=== PATIENT | male | born 2005 | race African-American/Black ===

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

== ENCOUNTER 2024-06-16 19:05 | Emergency (ER) | payer OTHER, SELFPAY ==
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
[2024-06-16 19:43] VITALS: BP 140/90; PULSE 88; RESP 18; TEMP 36.3; O2SAT 97; BMI 24.8
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
--- NOTE | 2024-06-17 02:23 | PC.NURSE ---
Pt brought to [facility] for treatment, assumed care of pt at this time. A&Ox3 skin color wnl for ethnicity, respirations even unlabored. Endorsing continued left jaw pain 12/18. No obvious deformity noted, negative imaging. VSS. Awaiting primary provider eval, aware of plan of care.
[2024-06-17 02:27] VITALS: BP 150/82; PULSE 65; RESP 18; TEMP 36.1; O2SAT 98
[2024-06-17] MEDS: Ibuprofen 600 MG TABLET PO (03:10)
[2024-06-17 03:11] VITALS: BP 150/82; PULSE 65; RESP 18; TEMP 36.1; O2SAT 98
== END 2024-06-17 03:12 | disposition home or self-care (01) ==
PROVIDERS: Emergency Provider Emergency Medicine
DX: S00.83XA Contusion of other part of head, initial encounter (principal); X58.XXXA Exposure to other specified factors, initial encounter; Y04.8XXA Assault by other bodily force, initial encounter; Y93.89 Activity, other specified; Y92.89 Other specified places as the place of occurrence of the external cause
CPT/HCPCS: 70110; 99283; 99284

== ENCOUNTER 2025-07-18 17:38 | Emergency (ER) | payer OTHER, SELFPAY ==
--- NOTE | ~2025-07-18 | US_ITS ---
CLINICAL HISTORY: Right calf pain. DVT Venous duplex ultrasound right lower extremity Comparison: None provided Findings: The visualized deep veins are fully compressible with normal Doppler color flow and spectral tracings. Intraluminal echoes and noncompressibility and no flow in the greater saphenous vein from level of distal calf up to mid thigh, consistent with superficial thrombophlebitis. No popliteal cyst. IMPRESSION: 1. Negative for right lower extremity deep vein thrombosis. 2. Greater saphenous vein superficial thrombophlebitis. This document has been electronically signed by: Ericka Banegas MD on 07/18/2025 21:34:35
[2025-07-18 17:49] VITALS: BP 172/82; PULSE 82; RESP 16; TEMP 36.2; O2SAT 98; BMI 45.3
--- NOTE | 2025-07-18 18:00 | ED_ITS ---
HPI - General Adult General Chief complaint: General Medical Stated complaint: Blood Clot Time Seen by Provider: 07/18/25 20:43 History of Present Illness ED Provider: Maryann Bae NP [facility] narrative: 20-year-old male otherwise healthy presents to the ED with chief complaint of right calf pain. Patient reports that he went to see his primary care provider complaining of this pain but was sent to the ED for an ultrasound. He has no history of DVT, but has a family history of blood clots. He denies any anticoagulant use. No recent injury, trauma to the leg. No recent travel. Reports the back of the calf feels very tight. He denies any fever, chills. No chest pain or pressure, shortness of breath, abdominal pain. Related Data Previous Rx's ?Medication ?Instructions ?Recorded ibuprofen 600 mg tablet 600 mg PO Q8H PRN fever or p ain 06/17/24 #20 tabs acetaminophen 500 mg tablet 1,000 mg (2 x 500 mg) PO Q 8H PRN 07/18/25 fever or pain 7 days #30 tabs Allergies Allergy/AdvReac Type Severity Reaction Status Date / Time No Known Allergies Allergy Verified 07/18/25 17:53 Review of Systems 2 Review of Systems: ROS is otherwise negative unless mentioned in HPI. [facility] Past Medical History Medical History Psychosis No known health problems Depression Social History Social History Household Members: Family Household Members Other:: sister Housing: House Do you presently have visiting nurse or other home services: No Alcohol intake: never Comment: M3 Patient Tobacco Use Status: Tobacco use Unknown Substance Use Type: Marijuana service: No Sexual orientation: Decline to Answer Physical Exam ED Exam Exam: Nursing notes and vital signs reviewed. Constitutional: Well-appearing, NAD. Alert. Oriented X3. Eyes: EOMI. ENT: Pharynx normal. Neck: Normal inspection. Neck supple. CVS: Normal heart rate and rhythm. Pulses normal. Respiratory: No respiratory distress. Abdomen: Nondistended. Skin: Skin warm and dry. Normal skin color. Extremities: No lower extremity edema. Pain with dorsiflexion of the right foot. Neuro: Oriented X 3. No motor deficit. Vital Signs: Vital Signs - 24 hr 07/18/25 17:49 07/18/25 22:00 Temperature 97.2 F 97.2 F Pulse Rate 82 82 Respiratory Rate 16 16 Blood Pressure 172/82 H 172/82 H Pulse Oximetry 98 98 Oxygen Delivery Method Room Air Room Air BMI result Body Mass Index 45.3 Course Course Course Narrative: RME: 20-year-old male presents to ED for right calf pain. Patient was sent by primary care to rule out DVT. Patient states right calf pain not relieved with any stretching. Patient has strong family history of DVT. Ultrasound labs ordered. Medications Administered Discontinued Medications Generic Name Dose Route Start Last Admin Trade Name Michael PRN Reason Stop Dose Admin Acetaminophen 975 mg 07/18/25 22:07 07/18/25 22:35 Acetaminophen 325 Mg Tablet PO 07/18/25 22:08 975 mg ONCE ONE Administration Ibuprofen 600 mg 07/18/25 22:07 07/18/25 22:35 Ibuprofen 600 Mg Tablet PO 07/18/25 22:08 600 mg ONCE ONE Administration Medical Decision Making Medical Decision Making [facility] Narrative: Upon my initial assessment, he is reporting right-sided calf pain. There is pain with dorsiflexion of the foot, concerning for underlying DVT or thrombophlebitis. Pending venous duplex, that was ordered by the triage provider and reassessment. His lab work was overall reassuring however. 2200-- He has ultrasound shows no right lower extremity DVT but there is evidence of a greater saphenous vein superficial thrombophlebitis. I spoke with vascular surgery on-call Dr. Yap given the anatomical location of the greater saphenous vein superficial thrombophlebitis. He does not recommend at this time anticoagulation based on the anatomic location. I do recommend the patient follows up with vascular surgery outpatient, and if pain persists or worsens he returns to the ED promptly for reassessment. I provided him a dose of Tylenol, ibuprofen while in the ED. He and his family member at bedside are agreeable to plan of care. Provided return precautions to the ED. Differential Diagnosis Differential Diagnoses: The differential diagnosis associated with the presentation includes DVT, cellulitis, thrombophlebitis Admission/Observation Consideration of admission/observation: Escalation of care including admission/observation considered ( not indicated) Consult Healthcare Provider Management of the patient was discussed with: Director Drug Safety (vascular surgery, Dr. Yap) Lab Data [facility] Lab Attestation statement: I reviewed the patient's lab results. (Overall reassuring) 07/18/25 18:10 07/18/25 18:10 Labs: Lab Results 07/18/25 Range/Units 18:10 WBC 7.6 (4.8-10.8) X10*3/uL RBC 5.04 (4.60-5.80) X10*6/uL Hgb 13.6 L (14.0-18.0) g/dl Hct 41.5 L (42.0-52.0) % MCV 82.3 (80.0-98.0) fL MCH 27.0 (27.0-33.0) pg MCHC 32.8 (31.0-36.0) g/dl RDW 12.0 (11.0-16.0) % Plt Count 208 (160-400) X10*3/uL MPV 9.8 (9.4-12.4) fL Immature Gran % (Auto) 0.3 (0.0-0.4) % Neut % (Auto) 52.5 (45-73) % Lymph % (Auto) 34.2 (20-40) % Floyd % (Auto) 9.1 (2-11) % Eos % (Auto) 3.2 (0-4) % Baso % (Auto) 0.7 (0-2) % Lymph # (Auto) 2.6 (1.2-4.9) X10*3/uL Floyd # (Auto) 0.7 (0.1-1.2) X10*3/uL Eos # (Auto) 0.2 (0.0-0.4) X10*3/uL Baso # (Auto) 0.1 (0.0-0.2) X10*3/uL Abs Immat Gran (auto) 0.02 (0.00-0.03) X10*3/uL Absolute Neuts (auto) 4.0 (2.0-8.3) x10*3/uL Absolute Nucleated RBC 0.000 (0.0-0.012) X10*3/uL Nucleated RBC % (auto) 0.0 (0.0-0.2) /100WBC PT 12.6 (11.2-13.5) SEC INR 1.0 (0.9-1.1) APTT 29.3 (26.7-34.1) SEC Sodium 141 (135-145) mmol/L Potassium 4.3 (3.3-5.1) mmol/L Chloride 107 (96-108) mmol/L Carbon Dioxide 24 (22-29) mmol/L Anion Gap 14 (12-20) BUN 16 (9-16) mg/dL Creatinine 1.09 (0.5-1.4) mg/dL Estim Creat Clear Calc 195.8 Estimated GFR > 60 Random Glucose 93 (60-115) mg/dL Calcium 9.2 (8.4-10.2) mg/dL Total Bilirubin 0.3 (0.0-1.0) mg/dL AST 39 H (5-37) U/L ALT 40 (0-40) U/L Alkaline Phosphatase 80 (39-117) U/L Total Protein 7.2 (6.5-8.0) g/dL Albumin 4.4 (3.5-5.0) g/dL Radiology Impression Discussion of test interpretation with radiology: I have reviewed the radiologist's reading. Radiologist Impression: IMPRESSION: 1. Negative for right lower extremity deep vein thrombosis. 2. Greater saphenous vein superficial thrombophlebitis. Independent Historian Clinical information obtained from an independent historian. History obtained from or confirmed by: Other (Family at bedside) External Record Review External record reviewed: Other (prior ED visits) Chronic Conditions Patient?s care impacted by: Hypertension Social Determinants Patient?s care significantly limited by Social Determinants of Health including: Inadequate housing, Low income and Problems related to primary support group Discharge Plan Discharge Clinical Impression: Superficial thrombophlebitis Patient Disposition: Home, Self-Care Additional Instructions: As we discussed, your ultrasound report shows that you have a greater saphenous vein superficial thrombophlebitis. This means that the clot is not in the deeper veins, and therefore is not a DVT. Based on its location and the fact that it is superficial, at this time we have discussed with vascular surgery, who does not recommend anticoagulation. please follow up with vascular surgery within the next 1-2 weeks regarding close follow up, and if you develop any worsening pain at any time, seek re-evaluation in the ED. Additionally, please follow up with your PCP regarding this finding. You may use [id number] Tylenol, ibuprofen. With any worsening complaints, return back to the ED for reassessment. Prescriptions: New acetaminophen 500 mg tablet 1,000 mg PO Q8H PRN (Reason: fever or pain) 7 Days Qty: 30 0RF No Action ibuprofen 600 mg tablet 600 mg PO Q8H PRN (Reason: fever or pain) Qty: 20 0RF Referrals: Lisa Estrada NP [Primary Care Provider, Pediatrics] Stuart Yap MD [Physician, Vascular Surgery] Interventions: ED Discharge Assessment Last Done: 07/18/25 22:46 Discharge Date/Time: 07/18/25 22:43 Print Language: Ghanaian
[2025-07-18 18:22] LABS: Hematocrit 41.5 % (42.0-52.0); Hemoglobin 13.6 g/dl (14.0-18.0); Imm Gran Abs Auto 0.02 X10*3/uL (0.00-0.03); Imm Gran Pct Auto 0.3 % (0.0-0.4); Lymphocytes Absolute Auto 2.6 X10*3/uL (1.2-4.9); MANUAL DIFF FLAG NO; Mean Corpuscular HGB Conc 32.8 g/dl (31.0-36.0); Mean Corpuscular Hemoglobin 27.0 pg (27.0-33.0); Mean Corpuscular Volume 82.3 fL (80.0-98.0); NRBC Abs Auto 0.000 X10*3/uL (0.0-0.012); NRBC Pct Auto 0.0 /100WBC (0.0-0.2); Platelet Count 208 X10*3/uL (160-400); Red Blood Count 5.04 X10*6/uL (4.60-5.80); White Blood Count 7.6 X10*3/uL (4.8-10.8)
[2025-07-18 18:27] LABS: INTERNATIONAL NORM RATIO 1.0 (0.9-1.1); Prothrombin Time 12.6 SEC (11.2-13.5)
[2025-07-18 18:30] LABS: Partial Thromboplastin Time 29.3 SEC (26.7-34.1)
[2025-07-18 18:35] LABS: Alanine Aminotransferase 40 U/L (0-40); Albumin Level 4.4 g/dL (3.5-5.0); Alkaline Phosphatase 80 U/L (39-117); Anion Gap 14 (12-20); Aspartate Amino Transferase 39 U/L (5-37); Blood Urea Nitrogen 16 mg/dL (9-16); Calcium 9.2 mg/dL (8.4-10.2); Carbon Dioxide 24 mmol/L (22-29); Chloride 107 mmol/L (96-108); Creatinine Clr Calc Pharmacy 195.8; Estimated Glomerular Filt Rate > 60; Potassium 4.3 mmol/L (3.3-5.1); Sodium 141 mmol/L (135-145); Total Protein 7.2 g/dL (6.5-8.0)
[2025-07-18 22:00] VITALS: BP 172/82; PULSE 82; RESP 16; TEMP 36.2; O2SAT 98
[2025-07-18 22:46] VITALS: BP 172/82; PULSE 82; RESP 16; TEMP 36.2; O2SAT 98
--- OUTSIDE RECORDS SUMMARY | 2025-07-19 02:30 | XMS_ITS ---
[facility] Organization Unknown Care Team Organization Name Specialty Phone Email Start Date End Da te [facility] LEO MARRERO Primary Care 06/18/2022 4
== END 2025-07-18 22:43 | disposition home or self-care (01) ==
PROVIDERS: Physician Assistant; Emergency Provider Emergency Medicine; PCP Nurse Practitioner Family
DX: I80.01 Phlebitis and thrombophlebitis of superficial vessels of right lower extremity (principal); M79.604 Pain in right leg
CPT/HCPCS: 36415; 80053; 85025; 85610; 85730; 93971; 99284

== ENCOUNTER → 2025-07-18 17:53 | Outpatient (BNV) | payer OTHER, SELFPAY | PROVIDERS: PCP Nurse Practitioner Family; Visit Provider Specialist | DX: I80.11 Phlebitis and thrombophlebitis of right femoral vein (principal) | CPT/HCPCS: 93971 ==

== ENCOUNTER 2025-07-30 13:56 | Emergency (ER) | payer OTHER, SELFPAY ==
--- OUTSIDE RECORDS SUMMARY | 2025-07-27 23:59 | XMS_ITS | Continuity of Care Document ---
Author Organization [facility] Address [address] [place] [address]- Care Team Providers Care Patient Care Director Name Role Phone Sean KNOX, Lisa Moody Primary Care Physician [phone] [id number] Date(s): 06/27/25 - 07/27/[address] [address]- Encounter Type: Triage Allergies, Adverse Reactions, Alerts Substance Criticality Severity Reaction Reaction Severity Status codeine Active Immunizations Given and Recorded Vaccine Date Status Refusal Reason influenza virus vaccine, inactivated 07/02/23 Give n Medications benztropine 0.5 mg oral tablet 0.5 mg, 1, tablet, By Mouth, Daily at bedtime, # 90 tablet, Refills 0, Maintenance, 07/18/25 11:37:00 AM EST, Partial fill upon patient request if the prescription is for a schedule II opioid drug. Start Date: 07/18/25 Status: Ordered Medication Dispense Status: Completed Quantity: 90.0 Unit: tablet Total Allowed Fills: 1 Fills Dispensed: 0 hydrOXYzine pamoate 50 mg oral capsule 1 capsule = 50 mg, By Mouth, 2 times a day, 0 Refills, Maintenance, 07/18/25 11:37:00 AM EST, Capsule, Partial fill upon patient request if the prescription is for a schedule II opioid drug. 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 Sexual Orientation Self described orien tation: ; Straight or heterosexual Sex Sex Representation Male (finding) Patient Care team information Care Team Personnel Name: Lisa Estrada NP Position: [facility] PCO Associate Professional Member Role: PCP Address: [address] [place] [address] Telecom: Name: Zahida Jean Position: [facility] Outreach Member Role: Lifetime Consulting Physician Care Team Related Persons Name: ACOSTA MICHEL Name: ARIANE MICHEL Name: KIESHA BRISCOE Insurance Providers Guarantor name: [employer] Health Plan Information #: 1 Payer: [employer] Payer Identifier: [employer] Member Number: [id number] Group Number: [id number] Subscriber Identifier: [id number] Relationship to Subscriber: self Coverage Type: Medicaid (Managed Care) Coverage Verification Date: [employer]AL Telecom: [employer] Address:
--- NOTE | ~2025-07-30 | US_ITS ---
CLINICAL HISTORY: increasing swelling pain, recent dx of superficial --- Additional Notes or Special Instructions: thrombophlebitis, eval for dvt Venous duplex ultrasound right lower extremity Comparison: US - US VENOUS DUPLEX LE RT - 07/18/25 20:19 EST Findings: Occlusive thrombus within the popliteal vein and within the distal aspect of the femoral vein. More proximal portions of the femoral vein are patent. The right common femoral vein is patent. The right peroneal vein was not visualized. The right posterior tibial vein is patent. There is chronic nonocclusive thrombus within the right greater saphenous vein. IMPRESSION: 1. There is acute deep venous thrombosis of the right lower extremity with involvement of the femoral and popliteal veins. 2. 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 This document has been electronically signed by: Alanna Trevino MD on 07/30/2025 16:49:20
[2025-07-30 14:30] VITALS: BP 176/92; PULSE 90; RESP 22; TEMP 36.3; O2SAT 97; BMI 46.0
--- NOTE | 2025-07-30 14:34 | ED.GENADULT ---
HPI - General Adult General Chief complaint: General Medical Stated complaint: returning, worsening pain ? bloodclot rt leg Time Seen by Provider: 07/30/25 16:20 Source: patient and family Mode of arrival: ambulatory Limitations: no limitations History of Present Illness ED Provider: Katy Georges APRN HPI narrative: 20-year-old male otherwise healthy presents to the ED with chief complaint of right calf pain. Patient reports that he went to see his primary care provider prior to 07/18 complaining of this pain but was sent to the ED for an ultrasound. he was seen in our emergency room on July 18 and had a ultrasound of the right lower extremity which showed superficial thrombophlebitis. Vascular was consulted and they recommended outpatient follow-up with no anticoagulation. The patient did not follow-up. He returns today for 24 hours of increasing swelling and warmth. He has no history of DVT, but has a family history of blood clots. He denies any anticoagulant use. No recent injury, trauma to the leg. No recent travel. He denies any fever, chills. No chest pain or pressure, shortness of breath, abdominal pain. Related Data Previous Rx's ?Medication ?Instructions ?Recorded ibuprofen 600 mg tablet 600 mg PO Q8H PRN fever or pain 06/17/24 #20 tabs acetaminophen 500 mg tablet 1,000 mg (2 x 500 mg) PO Q8H PRN 07/18/25 fever or pain 7 days #30 tabs apixaban 5 mg tablet (Eliquis) See Rx Instructions .Route 07/30/25 .COMPLEX #70 tabs Allergies Allergy/AdvReac Type Severity Reaction Status Date / Time No Known Allergies Allergy Verified 07/30/25 14:34 Review of Systems Review of Systems: Yes all other systems are reviewed and are negative Constitutional: Constitutional: Reports no additional constitutional complaints, Denies body ache(s), Denies chills, Denies fever(s), Denies headache(s) and Denies weakness Eyes: Eyes: Reports no additional eye complaints and Denies change in vision ENT: Reports system reviewed and no additional complaints, except as documented, Denies dizziness, Denies headache(s), Denies nasal congestion, Denies nasal discharge and Denies neck pain Cardiovascular: Cardiovascular: Reports no additional cardiovascular complaints, Denies chest pain, Denies leg edema and Denies dyspnea Respiratory: Respiratory: Reports no additional respiratory complaints, Denies cough and Denies dyspnea Gastrointestinal: Gastrointestinal: Reports no additional gastrointestinal complaints, Denies abdominal pain, Denies diarrhea, Denies nausea and Denies vomiting Genitourinary: Genitourinary: Denies urinary incontinence Musculoskeletal: Musculoskeletal: Reports no additional musculoskeletal complaints, Denies back pain, Denies arthralgias, Denies joint swelling, Denies neck pain, Denies numbness and Denies tingling Integumentary/Breasts: Skin/Breast: Reports system reviewed and no additional complaints, except as docu, Reports swelling, Reports erythema and Denies rash Neurologic: Reports system reviewed and no additional complaints, except as documented, Denies Abnormal speech present, Denies dizziness, Denies headache(s), Denies numbness, Denies tingling and Denies weakness PMFSH Past Medical History Attestation statement: The following information was validated with the patient. Source: old records reviewed and nursing notes reviewed Medical History Psychosis No known health problems Depression Social History Social History Household Members: Family Household Members Other:: sister Housing: House Do you presently have visiting nurse or other home services: No Alcohol intake: never Comment: M3 Patient Tobacco Use Status: Tobacco use Unknown Substance Use Type: Marijuana Advance Directives: No Advance Directives Information Provided: No Do you have a plan to hurt others: No Plan service: No Sexual orientation: Decline to Answer Physical Exam ED Vital Signs: Vital Signs - 24 hr 07/30/25 14:30 07/30/25 17:11 Temperature 97.3 F 97.3 F Pulse Rate 90 90 Respiratory Rate 22 H 22 H Blood Pressure 176/92 H 176/92 H Pulse Oximetry 97 97 Oxygen Delivery Method Room Air Room Air BMI result Body Mass Index 46.0 Const General: cooperative, healthy appearing, comfortable and no acute distress Orientation/consciousness: patient oriented x3 Limitations: no limitations HENMT Head: Yes normal to inspection Ears: hearing grossly normal bilaterally General nose exam: Normal external nose present Face and sinus: Yes normal facial exam Mouth: Normal oral and palatal mucosa present Throat: Yes posterior oropharynx normal Eyes General: appearance normal, both eyes and all related structures Pupils: Equal, round and reactive pupils present Neck Neck: Yes normal visual inspection Chest Chest palpation & inspection: normal inspection of the chest Resp Effort & Inspection: normal respiratory effort Auscultation: clear to auscultation bilaterally Cardio Rate: regular rate Rhythm: regular rhythm Peripheral pulses: Peripheral pulses 2+ throughout GI Inspection: Yes normal to inspection Palpation (GI): Soft to palpation and nontender Auscultation: normal bowel sounds Back/Spine/Pelvis Thoracic/Lumbar Spine: thoracic and lumbar spine normal to inspection Skin General skin exam: no rashes or lesions noted Neuro General: patient oriented x3, no focal motor deficits and normal sensation to monofilament Cranial nerves: Yes Equal, round and reactive pupils present Cognition (Neuro): normal cognition Speech: No Abnormal speech present Gait exam (Neuro): Normal gait present Motor exam (neuro): 5/5 motor strength present throughout Extrem Other: there is swelling to the right calf. There is some mild warmth. There is no redness. The pain is worsened with dorsiflexion of the foot. There is 2+ DP and PT pulses. Sensation is normal. Compartments are soft and compressible Course Course Course Narrative: Katyaurelio Georges HOME HEALTH NURSE 07/30 8711 this is a rapid medical exam. Defer additional HPI, ROS and PE to primary provider. 20-year-old male who was diagnosed with superficial thrombophlebitis of the right lower extremity on July 18 return to the emergency room with increasing swelling and pain over the last 24 hours. Patient is recommended to follow up outpatient with vascular surgery but he did not call to make an appointment. Pulses are present in the right lower extremity in triage there is some swelling and warmth of the extremity. no obvious cellulitis. I will obtain an ultrasound VSS Reevaluation(s) Reevaluation #1: 2000 IMPRESSION: 1. There is acute deep venous thrombosis of the right lower extremity with involvement of the femoral and popliteal veins. 2. 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 reviewed labs from 07/18 which showed normal renal function. no need for repeat. patient be started on Eliquis. reviewed dosing. reviewed care at home with AC therapy. recommend follow up outpatient with vascular surgery and primary care doctor reviewed worrisome signs and symptoms of when to return to the emergency room. Comfortable plan for discharge home. Medical Decision Making Medical Decision Making MDM Narrative: 20-year-old male otherwise healthy presents to the ED with chief complaint of right calf pain. Patient reports that he went to see his primary care provider prior to 07/18 complaining of this pain but was sent to the ED for an ultrasound. he was seen in our emergency room on July 18 and had a ultrasound of the right lower extremity which showed superficial thrombophlebitis. Vascular was consulted and they recommended outpatient follow-up with no anticoagulation. The patient did not follow-up. He returns today for 24 hours of increasing swelling and warmth. He has no history of DVT, but has a family history of blood clots. He denies any anticoagulant use. No recent injury, trauma to the leg. No recent travel. He denies any fever, chills. No chest pain or pressure, shortness of breath, abdominal pain. there is swelling to the right calf. There is some mild warmth. There is no redness. The pain is worsened with dorsiflexion of the foot. There is 2+ DP and PT pulses. Sensation is normal. Compartments are soft and compressible Will repeat US Differential Diagnosis Differential Diagnoses: The differential diagnosis associated with the presentation includes DVT, superficial thrombophlebitis Admission/Observation Consideration of admission/observation: Escalation of care including admission/observation considered Independent Interpretation I performed an independent interpretation of an: Ultrasound Interpretation: I independently viewed the ultrasound agree with the radiology report Radiology Impression Discussion of test interpretation with radiology: I have reviewed the radiologist's reading. Radiologist Impression: [place] [id number] Ultrasound Report Signed with Addenda Patient: Shayan Ibarra MR#: [id number] : 2005 Acct:[id number] Age/Sex: 20 / M ADM Date: 07/30/25 Loc: .ED Attending Dr: Ordering Physician: Katy Georges NP Date of Service: 07/30/25 Procedure(s): US venous duplex LE RT Accession Number(s): [id number] cc: Lisa Estrada NP; Katy Georges NP~ Reason for Exam: increasing swelling/pain, recent dx of superficial ADDENDUMThis document has been electronically signed by: Alanna Trevino MD on 07/30/2025 16:49:20 ADDENDUM: This report was discussed with José Manuel Burns MD on Jul 30, 2025 16:51:00 EST. This document has been electronically signed by: Mady Johnson on 07/30/2025 16:51:47 Addendum Dictated By: Alanna Trevino MD Addendum Signed By: <Electronically signed by Alanna Trevino MD in [place]> 07/30/251652 Addendum Cosigned By: DD/ TD/TT: 07/30/25 CLINICAL HISTORY: increasing swelling pain, recent dx of superficial --- Additional Notes or Special Instructions: thrombophlebitis, eval for dvt Venous duplex ultrasound right lower extremity Comparison: US - US VENOUS DUPLEX LE RT - 07/18/25 20:19 EST Findings: Occlusive thrombus within the popliteal vein and within the distal aspect of the femoral vein. More proximal portions of the femoral vein are patent. The right common femoral vein is patent. The right peroneal vein was not visualized. The right posterior tibial vein is patent. There is chronic nonocclusive thrombus within the right greater saphenous vein. IMPRESSION: 1. There is acute deep venous thrombosis of the right lower extremity with involvement of the femoral and popliteal veins. 2. 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 This document has been electronically signed by: Alanna Trevino MD on 07/30/2025 16:49:20 Discharge Plan Discharge Clinical Impression: DVT (deep venous thrombosis) Patient Disposition: Home, Self-Care Instructions: Deep Vein Thrombosis (ED), Blood Thinners (ED) Additional Instructions: your ultrasound shows a blood clot in your deep vein of your right leg Elevate the extremity Use the Matt bandage for comfort Take Tylenol only for pain Avoid ibuprofen, Motrin or any anti-inflammatory medications Read the instructions on taking blood thinning medications and follow these instructions. Follow-up with Dr. Yap outpatient as well as her primary care doctor Prescriptions: New Eliquis 5 mg tablet See Rx Instructions .ROUTE .COMPLEX Qty: 70 0RF Rx Instructions: Take 10mg BID x 7 days. Then start 5mg BID PO. No Action ibuprofen 600 mg tablet 600 mg PO Q8H PRN (Reason: fever or pain) Qty: 20 0RF acetaminophen 500 mg tablet 1,000 mg PO Q8H PRN (Reason: fever or pain) 7 Days Qty: 30 0RF Referrals: Lisa Estrada NP [Primary Care Provider, Pediatrics] Stuart Yap MD [Physician, Vascular Surgery] Interventions: ED Discharge Assessment Last Done: 07/30/25 17:11 Discharge Date/Time: 07/30/25 17:11 Print Language: Citizen Of [place]
[2025-07-30 17:11] VITALS: BP 176/92; PULSE 90; RESP 22; TEMP 36.3; O2SAT 97
== END 2025-07-30 17:11 | disposition home or self-care (01) ==
PROVIDERS: Emergency Provider Emergency Medicine; PCP Nurse Practitioner Family
DX: I82.411 Acute embolism and thrombosis of right femoral vein (principal); I82.431 Acute embolism and thrombosis of right popliteal vein; Z86.79 Personal history of other diseases of the circulatory system
CPT/HCPCS: 93971; 99282; 99284

== ENCOUNTER → 2025-07-30 14:36 | Outpatient (BNV) | payer OTHER, SELFPAY | PROVIDERS: Emergency Provider Emergency Medicine; PCP Nurse Practitioner Family; Visit Provider Radiology Diagnostic Radiology | DX: I82.411 Acute embolism and thrombosis of right femoral vein (principal); I82.431 Acute embolism and thrombosis of right popliteal vein | CPT/HCPCS: 93971 ==